=== PATIENT | male | born 1940 | race Caucasian/White ===

== ENCOUNTER 2022-08-24 09:12 | Outpatient (CLI) | payer OTHER, SELFPAY | END 2022-08-24 09:13 | disposition home or self-care (01) | PROVIDERS: PCP Family Medicine; Visit Provider Family Medicine | DX: Z00.00 Encounter for general adult medical examination without abnormal findings (principal); R53.83 Other fatigue; E78.5 Hyperlipidemia, unspecified; I10 Essential (primary) hypertension; I25.10 Atherosclerotic heart disease of native coronary artery without angina pectoris; Z12.5 Encounter for screening for malignant neoplasm of prostate | CPT/HCPCS: 80053; 80061; 82306; 84153; 84443 ==

== ENCOUNTER 2023-08-30 08:52 | Outpatient (CLI) | payer OTHER, SELFPAY | END 2023-08-30 08:53 | disposition home or self-care (01) | LOC: LKVREF 08:55 | PROVIDERS: PCP Family Medicine; Visit Provider Family Medicine | DX: Z00.00 Encounter for general adult medical examination without abnormal findings (principal); E78.5 Hyperlipidemia, unspecified; M10.9 Gout, unspecified; I10 Essential (primary) hypertension; J44.9 Chronic obstructive pulmonary disease, unspecified; I25.10 Atherosclerotic heart disease of native coronary artery without angina pectoris | CPT/HCPCS: 80053; 80061; 84550 ==

== ENCOUNTER 2024-08-26 08:56 | Outpatient (CLI) | payer OTHER, SELFPAY | END 2024-08-26 08:57 | disposition home or self-care (01) | LOC: LKVREF 08:56 | PROVIDERS: PCP Family Medicine; Visit Provider Family Medicine | DX: I10 Essential (primary) hypertension (principal); R53.83 Other fatigue; I25.10 Atherosclerotic heart disease of native coronary artery without angina pectoris; E55.9 Vitamin D deficiency, unspecified; Z12.5 Encounter for screening for malignant neoplasm of prostate | CPT/HCPCS: 80053; 80061; 82306; G0103 ==

== ENCOUNTER 2024-09-02 08:48 | Outpatient (CLI) | payer OTHER, SELFPAY | END 2024-09-02 08:49 | disposition home or self-care (01) | LOC: US 08:49 | PROVIDERS: PCP Family Medicine; Visit Provider Family Medicine | DX: I25.10 Atherosclerotic heart disease of native coronary artery without angina pectoris (principal); I10 Essential (primary) hypertension | CPT/HCPCS: 76775 ==